=== PATIENT | female | born 1950 | race Two or more races ===

== ENCOUNTER 2020-11-07 08:59 | Outpatient (CLI) | payer OTHER | END 2020-11-07 09:01 | disposition home or self-care (01) | LOC: SONOGRAMA 08:59 | PROVIDERS: ATTEND Pathology Anatomic Pathology & Clinical Pathology | DX: D34 Benign neoplasm of thyroid gland (principal); E04.2 Nontoxic multinodular goiter; E06.5 Other chronic thyroiditis ==